=== PATIENT | female | born 1985 | race Two or more races ===

== ENCOUNTER 2023-10-30 15:45 | Emergency (ER) | payer OTHER ==
[~2023-10-30] VITALS: Ht 167.6 cm; Wt 75.7 kg
[~2023-10-30 15:45] MED LIST: DOLOGEN CAPLET1 TAB PO; MEDROL4 MG PO; PROVENTIL3 ML/2.5 M IH; TUSSIN15 MG/5 M1
[2023-10-30] MEDS ORDERED: KETOROLAC TROMETHAMINE 30 MG VIAL IV ONE (17:00)
[2023-10-30] MEDS ORDERED: cloNIDine HCL 0.2 MG TABLET PO ONE (17:00)
[2023-10-30 17:17] LABS: HEMATOCRIT 39.4 % (36.0-45.00); MEAN CELL VOLUME 86.4 fL (80.00-100.00); MEAN CORPUSCULAR HEMOGLOBIN 28.4 pg (27.00-32.0); MEAN CORPUSCULAR HGB CONC 32.9 g/dl (32.0-36.0); PLATELET COUNT 337 K/uL (150-450); RED BLOOD COUNT 4.56 M/uL (4.00-6.00); RED CELL DISTRIBUTION WIDTH 15.3 % (11.5-14.5)
[2023-10-30 17:41] LABS: ALBUMIN 3.9 gm/dL (3.4-5.0); BILIRUBIN TOTAL 0.31 mg/dL (0.3-1.2); CALCIUM 9.6 mg/dL (8.5-10.1); CREATININE SERUM 0.74 mg/dL (0.55-1.02); GFR 87.83; GLOBULINA 3.8 G/DL (2.4-3.5); POTASSIUM 5.09 mEq/L (3.5-5.1); TOTAL PROTEIN 7.7 gm/dL (6.4-8.2)
== END 2023-10-30 19:04 | disposition home or self-care (01) ==
LOC: ER 15:45
PROVIDERS: Emergency Medicine
DX: M26.622 Arthralgia of left temporomandibular joint (principal); I10 Essential (primary) hypertension; Z91.013 Allergy to seafood; Z87.09 Personal history of other diseases of the respiratory system

== ENCOUNTER 2024-11-21 18:01 | Inpatient (IN) | payer OTHER ==
[~2024-11-21] VITALS: Ht 162.6 cm; Wt 72.6 kg
[2024-11-21] MEDS ORDERED: METHYLPREDNISOLONE SOD SUCC 125 MG VIAL IV ONE (19:00)
[2024-11-21] MEDS ORDERED: IPRATROPIUM/ALBUTEROL SULFATE 3 ML AMPUL.NEB IH SCH ×2 (19:00→22:09)
--- NOTE | 2024-11-21 19:04 | NUR ---
PTE ALERTA Y ORIENTADA X 3 ESFERAS QUIEN REFIERE ASMA DESDE ESTA TARDE QUE NO MEJORA CON TX MEDICO,SE OBSERVA CON FATIGA Y NO HABLA EN ORACIONES COMPLETAS.
[2024-11-21] MEDS ORDERED: IPRATROPIUM/ALBUTEROL SULFATE 3 ML AMPUL.NEB IH ONE (19:05)
[2024-11-21] MEDS ORDERED: MAGNESIUM SULFATE IN WATER 4 GM/100 ML PIGGYBACK IV ONE (19:15)
[2024-11-21] MEDS ORDERED: MAGNESIUM SULFATE IN WATER 2 GM/50 ML PIGGYBAG IV ONE (19:15)
[2024-11-21] MEDS ORDERED: GUAIFENESIN 200 MG/10 ML BLIST.PACK PO ONE (19:15)
[2024-11-21] MEDS ORDERED: METHYLPREDNISOLONE SOD SUCC 125 MG VIAL ONE (19:19)
[2024-11-21] MEDS ORDERED: GUAIFENESIN/DEXTROMETHORPHAN 100MG/10ML BLIST.PACK PO ONE (19:19)
[2024-11-21] MEDS ORDERED: MAGNESIUM SULFATE 50% 1,000 MG/2 ML VIAL ONE (19:19)
--- NOTE | 2024-11-21 19:24 | NUR ---
SE EDUCA A PTE SOBRE TX MEDICO, SE JOCELINE MUESTRAS DE LABORATORIO UTILIZANDO MEDIDAS ASEPTICAS. SE COLOCA H/L NAINA DE EDEMA. SE ADMINISTRAN MEDICAMENTOS PABLO ORDEN MEDICA. SE NOTIFICA LAURA DE TERAPIAS PENDIENTES A PERSONAL DE TERAPIA RESPIRATORIA.
[2024-11-21 19:44] LABS: HEMATOCRIT 45.8 % (36.0-45.00); HEMOGLOBIN 14.7 g/dL (12.0-15.00); MEAN CELL VOLUME 85.3 fL (80.00-100.00); MEAN CORPUSCULAR HEMOGLOBIN 27.3 pg (27.00-32.0); MEAN CORPUSCULAR HGB CONC 32.1 g/dl (32.0-36.0); PLATELET COUNT 363 K/uL (150-450); RED BLOOD COUNT 5.37 M/uL (4.00-6.00); RED CELL DISTRIBUTION WIDTH 15.6 % (11.5-14.5)
[2024-11-21 20:10] LABS: CALCIUM 9.5 mg/dL (8.5-10.1); CREATININE SERUM 0.67 mg/dL (0.55-1.02); GFR 97.99; POTASSIUM 4.47 mEq/L (3.5-5.1)
[2024-11-21] MEDS ORDERED: PIPERACILLIN/TAZOBACTAM SODIUM 3.375 GM VIAL IV ONE ×2 (21:00→21:07)
[2024-11-21 21:44] LABS: ABG PH 7.405 (7.35-7.45); ABG PO2 61.8 mmHg (80-100); BASE EXCESS -2.1 mmol/l; SaO2 91.3 %; Tco2 23.1 mmol/l
[2024-11-21 22:04] LABS: allen test SATISFACTORY; o2 21 %; puncture site RADIAL RIGHT
[2024-11-21] MEDS ORDERED: AZITHROMYCIN 500 MG in DEXTROSE 5 % IN WATER 250 ML IV SCH (22:10)
[2024-11-21] MEDS ORDERED: CEFTRIAXONE SODIUM 2,000 MG in 0.9 % SODIUM CHLORIDE 100 ML IV SCH (22:10)
[2024-11-21] MEDS ORDERED: GUAIFEN/DEXTROMETHORPHAN/PE 10 ML BLIST.PACK PO SCH (22:10)
[2024-11-21] MEDS ORDERED: MONTELUKAST SODIUM 10 MG TABLET PO SCH (22:13)
[2024-11-21] MEDS ORDERED: ACETAMINOPHEN 500 MG GEL..CAP PO PRN (22:15)
[2024-11-21] MEDS ORDERED: 0.9 % SODIUM CHLORIDE 1,000 ML IV SCH (22:15)
[2024-11-21] MEDS ORDERED: AZITHROMYCIN 500 MG VIAL IV ONE (22:42)
[2024-11-21] MEDS ORDERED: MONTELUKAST SODIUM 10 MG TABLET PO ONE (22:42)
[2024-11-21] MEDS ORDERED: CEFTRIAXONE SODIUM 2,000 MG VIAL ONE (22:42)
[2024-11-21] MEDS ORDERED: GUAIFEN/DEXTROMETHORPHAN/PE 10 ML BLIST.PACK PO ONE (22:42)
[2024-11-21 23:36] LABS: INR 1.01; PARTIAL THROMBOPLASTIN TIME 26.5 SECONDS (22.0-34.0)
[2024-11-22] VITALS: BP 134/87; O2SAT 95
[2024-11-22] MEDS ORDERED: METHYLPREDNISOLONE SOD SUCC 40 MG VIAL IV SCH (01:00)
[2024-11-22 04:02] LABS: URINE APPEARANCE Clear; URINE BILIRRUBIN Negative (NEGATIVE); URINE BLOOD Negative; URINE COLOR Yellow; URINE KETONE Negative (NEGATIVE); URINE LEUKOCYTE Negative; URINE NITRATE Negative; URINE PROTEIN Negative (NEGATIVE); URINE UROBILINOGEN 0.2 E.U./dl
[2024-11-22 04:05] LABS: URINE BACTERIA 102.7 uL (0.0-1933); URINE EPITHELIAL CELLS 2.5 uL (0.0-38.8)
[2024-11-22 04:06] LABS: URINE GLUCOSE 250 MG/DL (NEGATIVE); URINE RBC 0.5 uL (0.0-20.8); URINE WBC 1.7 uL (0.0-23.2)
[2024-11-22] MEDS ORDERED: FAMOTIDINE/PF 20 MG in 0.9 % SODIUM CHLORIDE 8 ML IV PUSH SCH (05:00)
[2024-11-22 06:49] VITALS: BP 102/66
[2024-11-22 08:48] VITALS: BP 119/74
[2024-11-22] MEDS ORDERED: ENOXAPARIN SODIUM 40 MG/0.4 ML SYRINGE SUBCUTANEO SCH (09:00)
[2024-11-22 17:10] VITALS: BP 112/78; O2SAT 99
[2024-11-23 00:20] VITALS: BP 101/63
[2024-11-23 07:02] LABS: ALBUMIN 3.2 gm/dL (3.4-5.0); BILIRUBIN TOTAL 0.31 mg/dL (0.3-1.2); CALCIUM 9.1 mg/dL (8.5-10.1); CREATININE SERUM 0.64 mg/dL (0.55-1.02); GFR 103.31; GLOBULINA 3.3 G/DL (2.4-3.5); PHOSPHOROUS 4.2 mg/dL (2.5-4.9); POTASSIUM 4.83 mEq/L (3.5-5.1); TOTAL PROTEIN 6.5 gm/dL (6.4-8.2)
[2024-11-23 07:48] LABS: HEMATOCRIT 36.3 % (36.0-45.00); HEMOGLOBIN 11.8 g/dL (12.0-15.00); MEAN CELL VOLUME 84.2 fL (80.00-100.00); MEAN CORPUSCULAR HEMOGLOBIN 27.3 pg (27.00-32.0); MEAN CORPUSCULAR HGB CONC 32.5 g/dl (32.0-36.0); PLATELET COUNT 308 K/uL (150-450); RED BLOOD COUNT 4.31 M/uL (4.00-6.00); RED CELL DISTRIBUTION WIDTH 15.7 % (11.5-14.5)
[2024-11-23 08:48] VITALS: BP 136/85; O2SAT 98
[2024-11-23] MEDS ORDERED: CARVEDILOL 3.125 MG TABLET PO SCH (17:00)
[2024-11-23 17:12] VITALS: BP 133/83; O2SAT 98
[2024-11-23] MEDS ORDERED: CARVEDILOL 12.5 MG TABLET PO SCH (19:03)
[2024-11-23] MEDS ORDERED: METHYLPREDNISOLONE SOD SUCC 40 MG VIAL IV SCH (21:00)
[2024-11-23] MEDS ORDERED: CARVEDILOL 6.25 MG TABLET PO SCH (21:00)
[2024-11-24] MEDS ORDERED: LEVALBUTEROL HCL 0.63 MG/3 ML SOLUTION IH SCH
[2024-11-24] MEDS ORDERED: IPRATROPIUM BROMIDE 0.5 MG/2.5 ML AMPUL.NEB IH SCH (01:00)
[2024-11-24 01:09] VITALS: BP 125/85
[2024-11-24 09:44] VITALS: BP 150/88; O2SAT 97
[2024-11-24 18:14] VITALS: BP 133/82
[2024-11-24 21:28] LABS: ABG PH 7.424 (7.35-7.45); ABG pCO2 35.9 mmHg (35-45); BICARBONATE 22.9 mmol/l (23-25)
[2024-11-24 21:29] LABS: BASE EXCESS -0.9 mmol/l; allen test SATISFACTORY; o2 21 %; puncture site RADIAL RIGHT
[2024-11-24 21:30] LABS: ABG PO2 130.4 mmHg (80-100)
[2024-11-25 02:40] VITALS: BP 141/91; O2SAT 100
[2024-11-25 07:59] LABS: HEMATOCRIT 36.3 % (36.0-45.00); HEMOGLOBIN 11.7 g/dL (12.0-15.00); MEAN CELL VOLUME 85.1 fL (80.00-100.00); MEAN CORPUSCULAR HEMOGLOBIN 27.5 pg (27.00-32.0); MEAN CORPUSCULAR HGB CONC 32.4 g/dl (32.0-36.0); PLATELET COUNT 298 K/uL (150-450); RED BLOOD COUNT 4.27 M/uL (4.00-6.00); RED CELL DISTRIBUTION WIDTH 15.3 % (11.5-14.5)
[2024-11-25 08:54] LABS: ALBUMIN 2.9 gm/dL (3.4-5.0); BILIRUBIN TOTAL 0.34 mg/dL (0.3-1.2); CALCIUM 8.7 mg/dL (8.5-10.1); CREATININE SERUM 0.64 mg/dL (0.55-1.02); GFR 103.31; POTASSIUM 4.47 mEq/L (3.5-5.1); TOTAL PROTEIN 5.9 gm/dL (6.4-8.2)
[2024-11-25] MEDS ORDERED: METHYLPREDNISOLONE SOD SUCC 40 MG VIAL IV SCH (09:00)
[2024-11-25 09:02] VITALS: BP 124/84; O2SAT 98
[2024-11-25 18:01] VITALS: BP 157/103
[2024-11-26 02:00] VITALS: BP 133/86; O2SAT 96
[2024-11-26] MEDS ORDERED: AZITHROMYCIN 500 MG VIAL IV SCH (09:00)
[2024-11-26] MEDS ORDERED: METHYLPREDNISOLONE SOD SUCC 40 MG VIAL IV SCH (09:00)
[2024-11-26 09:02] VITALS: BP 146/93; O2SAT 96
[2024-11-26] MEDS ORDERED: XOPENEX CO1.25 MG/0. IH (10:49)
[2024-11-26] MEDS ORDERED: MEDROLPACK PO (10:50)
== END 2024-11-26 12:14 | disposition home or self-care (01) | DRG 202 ==
LOC: ER 18:04 → MEDJ 22:38
PROVIDERS: Emergency Medicine; General Practice; Internal Medicine; ADMIT Internal Medicine; ATTEND Internal Medicine
PROC: BW24ZZZ Computerized Tomography (CT Scan) of Chest and Abdomen (ICD-10-PCS; principal; 2024-11-21)
PROC: B24BZZZ Ultrasonography of Heart with Aorta (ICD-10-PCS; 2024-11-24)
DX: J45.41 Moderate persistent asthma with (acute) exacerbation (principal); J18.9 Pneumonia, unspecified organism; R09.02 Hypoxemia; I10 Essential (primary) hypertension

== ENCOUNTER 2025-01-21 19:33 | Inpatient (IN) | payer OTHER ==
[~2025-01-21] VITALS: Ht 165.1 cm; Wt 76.2 kg
[~2025-01-21 19:33] MED LIST changes: +MEDROLPACK PO; +XOPENEX CO1.25 MG/0. IH
[2025-01-21] MEDS ORDERED: CARVEDILOL ER40 MG PO (20:08)
[2025-01-21] MEDS ORDERED: ZESTRIL40 M1 PO (20:08)
[2025-01-21] MEDS ORDERED: AMLODIPINE BESYL5 MG PO (20:09)
--- NOTE | 2025-01-21 20:20 | NUR ---
SENRECIBE PTE ALERTA, ORIENTADA X3. PTE REFIERE FIEBRE, MALESTAR GENERAL Y DOLOR CORPORAL. AL MOMENTO DE TRIAGE TEMP. 101.1 SE ADMINISTRAN 1000 MG DE TYLENOL. PULSO EN 140. SE REALIZA EKG Y SE PRESENTA A .
[2025-01-21] MEDS ORDERED: FAMOtidine 10 MG/ML (4ML VIAL) IV ONE (20:30)
[2025-01-21] MEDS ORDERED: ACETAMINOPHEN 325 MG TABLET PO ONE (20:30)
[2025-01-21] MEDS ORDERED: 0.9 % SODIUM CHLORIDE 1,000 ML IV ONE (20:45)
[2025-01-21 21:26] LABS: BASO % 0.6 % (0.1-1.2); EOS # 0.47 (0.04-0.54); EOS % 2.2 % (0.7-7.0); HEMATOCRIT 38.5 % (34.1-44.9); HEMOGLOBIN 12.7 g/dL (11.2-15.7); LYMPH # 0.87 (1.18-3.74); MEAN CORPUSCULAR HEMOGLOBIN 28.2 pg (25.6-32.2); MONO # 1.27 (0.24-0.82); MONO % 5.9 % (4.7-12.5); NEUT % 86.9 % (34.0-71.1); PLATELET COUNT 319 K/uL (163-369); RED BLOOD COUNT 4.51 M/uL (3.93-5.22); RED CELL DISTRIBUTION WIDTH 13.8 % (11.6-14.4)
[2025-01-21 21:37] LABS: INFLUENZA A AG NEGATIVE (NEGATIVE)
[2025-01-21 21:39] LABS: ALBUMIN 3.6 gm/dL (3.4-5.0); BILIRUBIN TOTAL 0.7 mg/dL (0.3-1.2); CALCIUM 8.6 mg/dL (8.5-10.1); CREATININE SERUM 0.85 mg/dL (0.55-1.02); GFR 74.07; POTASSIUM 3.87 mEq/L (3.5-5.1); TOTAL PROTEIN 7.6 gm/dL (6.4-8.2)
--- NOTE | 2025-01-21 21:41 | NUR ---
SE EDUCA A PTE SOBRE TX MEDICO Y LA MISMA REFIERE ENTENDER Y ACEPTAR. SE EJECUTAN ORDENES MEDICAS A HOLMAN TOTALIDAD.
[2025-01-21 22:32] LABS: COVID-19 AG NEGATIVE (NEGATIVE)
[2025-01-21 22:38] LABS: BASO % 0.5 % (0.1-1.2); EOS # 0.43 (0.04-0.54); EOS % 2.1 % (0.7-7.0); HEMATOCRIT 36.3 % (34.1-44.9); LYMPH # 1.25 (1.18-3.74); LYMPH % 6.1 % (19.3-53.1); MONO # 1.43 (0.24-0.82); MONO % 6.9 % (4.7-12.5); NEUT # 17.31 (1.56-6.13); NEUT % 84.1 % (34.0-71.1); PLATELET COUNT 308 K/uL (163-369); RED BLOOD COUNT 4.29 M/uL (3.93-5.22); RED CELL DISTRIBUTION WIDTH 13.8 % (11.6-14.4)
[2025-01-21] MEDS ORDERED: PIPERACILLIN/TAZOBACTAM SODIUM 3.375 GM VIAL IV ONE (22:45)
[2025-01-22 00:08] LABS: PH,URINE 5.5 (5.0-8.0); URINE APPEARANCE Clear; URINE BILIRRUBIN Negative (NEGATIVE); URINE BLOOD Negative; URINE COLOR Yellow; URINE GLUCOSE Negative (NEGATIVE); URINE KETONE 15 (NEGATIVE); URINE LEUKOCYTE Negative; URINE NITRATE Negative; URINE PROTEIN Negative (NEGATIVE); URINE UROBILINOGEN 0.2 E.U./dl
[2025-01-22 00:12] LABS: URINE BACTERIA 406.3 uL (0.0-1933); URINE EPITHELIAL CELLS 14.5 uL (0.0-38.8); URINE WBC 2.6 uL (0.0-23.2)
[2025-01-22 00:20] LABS: URINE RBC 1.4 uL (0.0-20.8)
[2025-01-22] MEDS ORDERED: ACETAMINOPHEN 325 MG TABLET PO SCH (01:00)
[2025-01-22] MEDS ORDERED: ALBUTEROL SULFATE 3 ML/2.5 MG AMPUL.NEB IH SCH ×2 (02:30→09:00)
[2025-01-22 06:48] LABS: BASO % 0.6 % (0.1-1.2); EOS # 0.87 (0.04-0.54); EOS % 4.4 % (0.7-7.0); HEMATOCRIT 37.3 % (34.1-44.9); HEMOGLOBIN 12.3 g/dL (11.2-15.7); LYMPH # 1.16 (1.18-3.74); LYMPH % 5.8 % (19.3-53.1); MEAN CORPUSCULAR HEMOGLOBIN 28.4 pg (25.6-32.2); MONO # 1.46 (0.24-0.82); MONO % 7.3 % (4.7-12.5); NEUT # 16.24 (1.56-6.13); NEUT % 81.5 % (34.0-71.1); PLATELET COUNT 304 K/uL (163-369); RED BLOOD COUNT 4.33 M/uL (3.93-5.22); RED CELL DISTRIBUTION WIDTH 13.8 % (11.6-14.4)
[2025-01-22] MEDS ORDERED: CEFTRIAXONE SODIUM 1,000 MG VIAL IV STA (07:41)
[2025-01-22] MEDS ORDERED: ALBUTEROL SULFATE 3 ML/2.5 MG AMPUL.NEB IH ONE (16:47)
[2025-01-22] MEDS ORDERED: FAMOTIDINE/PF 20 MG in 0.9 % SODIUM CHLORIDE 8 ML IV PUSH SCH (18:02)
[2025-01-22] MEDS ORDERED: IPRATROPIUM/ALBUTEROL SULFATE 3 ML AMPUL.NEB IH SCH (18:08)
[2025-01-22] MEDS ORDERED: GUAIFEN/DEXTROMETHORPHAN/PE 10 ML BLIST.PACK PO SCH (18:09)
[2025-01-22] MEDS ORDERED: METHYLPREDNISOLONE SOD SUCC 40 MG VIAL IV SCH (18:10)
[2025-01-22] MEDS ORDERED: AMLODIPINE BESYLATE 5 MG TABLET PO SCH (18:10)
[2025-01-22] MEDS ORDERED: MONTELUKAST SODIUM 10 MG TABLET PO SCH (18:12)
[2025-01-22] MEDS ORDERED: NICOTINE 21MG/24HR PATCH.TD24 TD ONE (18:15)
[2025-01-22] MEDS ORDERED: ACETAMINOPHEN 500 MG GEL..CAP PO PRN (18:15)
[2025-01-22] MEDS ORDERED: SODIUM CHLORIDE 0.45 % 1,000 ML IV SCH (18:15)
[2025-01-22] MEDS ORDERED: KETOROLAC TROMETHAMINE 15 MG VIAL IU PRN (18:15)
[2025-01-22] MEDS ORDERED: 0.9 % SODIUM CHLORIDE 1,000 ML IV ONE (18:15)
[2025-01-22] MEDS ORDERED: 0.9 % SODIUM CHLORIDE 1,000 ML IV SCH (18:15)
[2025-01-22] MEDS ORDERED: METHYLPREDNISOLONE SOD SUCC 40 MG VIAL ONE (19:53)
[2025-01-22] MEDS ORDERED: GUAIFEN/DEXTROMETHORPHAN/PE 10 ML BLIST.PACK PO ONE (19:53)
[2025-01-22] MEDS ORDERED: FAMOTIDINE/PF 20 MG/2 ML VIAL ONE (19:54)
[2025-01-22] MEDS ORDERED: IPRATROPIUM/ALBUTEROL SULFATE 3 ML AMPUL.NEB IH ONE (20:31)
[2025-01-22 20:55] LABS: URINE APPEARANCE Clear; URINE BILIRRUBIN Negative (NEGATIVE); URINE BLOOD Negative; URINE COLOR Yellow; URINE GLUCOSE Negative (NEGATIVE); URINE KETONE Negative (NEGATIVE); URINE LEUKOCYTE Negative; URINE NITRATE Negative; URINE PROTEIN Negative (NEGATIVE)
[2025-01-22 20:59] LABS: URINE BACTERIA 102.7 uL (0.0-1933); URINE EPITHELIAL CELLS 3.6 uL (0.0-38.8); URINE WBC 1.8 uL (0.0-23.2)
[2025-01-22 21:04] LABS: INR 1.08; PARTIAL THROMBOPLASTIN TIME 28.2 SECONDS (22.0-34.0); PROTHROMBIN TIME 11.7 SECONDS (9.0-11.5)
[2025-01-22 21:07] LABS: URINE RBC 0.5 uL (0.0-20.8)
[2025-01-22 21:13] LABS: COVID-19 AG NEGATIVE (NEGATIVE)
[2025-01-22 22:20] LABS: ABG PH 7.443 (7.35-7.45); ABG PO2 77.2 mmHg (80-100); BASE EXCESS -1.1 mmol/l; BICARBONATE 22.1 mmol/l (23-25); SaO2 95.8 %; Tco2 23.1 mmol/l; allen test SATISFACTORY; mode ROOM AIR; o2 21 %; puncture site RADIAL LEFT
[2025-01-23] MEDS ORDERED: PIPERACILLIN/TAZOBACTAM SODIUM 3.375 GM in DEXTROSE 5 % IN WATER 100 ML IV SCH
[2025-01-23 05:21] VITALS: BP 138/84; O2SAT 98
[2025-01-23] MEDS ORDERED: LOSARTAN POTASSIUM 100 MG TABLET PO SCH (09:00)
[2025-01-23] MEDS ORDERED: LISINOPRIL 20 MG TABLET PO SCH (09:00)
[2025-01-23] MEDS ORDERED: ENOXAPARIN SODIUM 40 MG/0.4 ML SYRINGE SUBCUTANEO SCH (09:00)
[2025-01-23 09:02] VITALS: BP 117/78; O2SAT 95
[2025-01-23 17:29] VITALS: BP 122/75
[2025-01-23] MEDS ORDERED: METHYLPREDNISOLONE SOD SUCC 40 MG VIAL IV SCH (21:00)
[2025-01-24 02:48] VITALS: BP 124/75; O2SAT 95
[2025-01-24] MEDS ORDERED: 0.9 % SODIUM CHLORIDE 10 ML VIAL IJ ONE (07:57)
[2025-01-24 08:00] VITALS: BP 144/87
[2025-01-24] MEDS ORDERED: SODIUM CHLORIDE FOR INHALATION 1 VIAL.NEB IH SCH (09:00)
[2025-01-24 10:48] LABS: BASO % 0.1 % (0.1-1.2); HEMATOCRIT 37.9 % (34.1-44.9); LYMPH # 0.65 (1.18-3.74); LYMPH % 3.8 % (19.3-53.1); MEAN CORPUSCULAR HEMOGLOBIN 27.2 pg (25.6-32.2); MONO # 0.37 (0.24-0.82); MONO % 2.2 % (4.7-12.5); NEUT # 15.84 (1.56-6.13); NEUT % 93.4 % (34.0-71.1); PLATELET COUNT 377 K/uL (163-369); RED BLOOD COUNT 4.41 M/uL (3.93-5.22); RED CELL DISTRIBUTION WIDTH 13.7 % (11.6-14.4)
[2025-01-24] MEDS ORDERED: LACTOBACILLUS ACIDOPHILUS 1 CAP CAP PO SCH (17:00)
[2025-01-24 18:28] VITALS: BP 122/76
[2025-01-25 02:54] VITALS: BP 125/79
[2025-01-25 08:24] VITALS: BP 124/78
[2025-01-25 18:24] VITALS: BP 135/87; O2SAT 98
[2025-01-26] VITALS: BP 139/85; O2SAT 95
[2025-01-26 06:39] LABS: BASO % 0.1 % (0.1-1.2); HEMATOCRIT 32.3 % (34.1-44.9); HEMOGLOBIN 10.6 g/dL (11.2-15.7); LYMPH # 0.69 (1.18-3.74); MEAN CORPUSCULAR HEMOGLOBIN 28.3 pg (25.6-32.2); MONO % 4.1 % (4.7-12.5); NEUT # 8.55 (1.56-6.13); PLATELET COUNT 341 K/uL (163-369); RED BLOOD COUNT 3.75 M/uL (3.93-5.22); RED CELL DISTRIBUTION WIDTH 13.8 % (11.6-14.4)
[2025-01-26 07:17] LABS: ALBUMIN 2.8 gm/dL (3.4-5.0); BILIRUBIN TOTAL 0.17 mg/dL (0.3-1.2); CALCIUM 8.3 mg/dL (8.5-10.1); CREATININE SERUM 0.62 mg/dL (0.55-1.02); GFR 106.61; GLOBULINA 3.1 G/DL (2.4-3.5); MAGNESIUM 1.8 mg/dL (1.8-2.4); PHOSPHOROUS 3.7 mg/dL (2.5-4.9); POTASSIUM 4.63 mEq/L (3.5-5.1); TOTAL PROTEIN 5.9 gm/dL (6.4-8.2)
[2025-01-26 07:22] LABS: C-REACTIVE PROTEIN 0.73 MG/DL (0.00-0.29)
[2025-01-26 08:01] VITALS: BP 146/87
[2025-01-26 17:37] VITALS: BP 142/81; O2SAT 98
[2025-01-26] MEDS ORDERED: FAMOtidine 20 MG TABLET PO SCH (21:00)
[2025-01-27 02:49] VITALS: BP 121/68; O2SAT 97
[2025-01-27 05:07] LABS: quan ag 0.01 IU/mL (.); quan ag 0.02 IU/mL (.); quant nil 0.01 IU/mL (.)
[2025-01-27 07:52] VITALS: BP 134/79
[2025-01-27 17:57] VITALS: BP 137/85; O2SAT 99
[2025-01-27] MEDS ORDERED: METHYLPREDNISOLONE SOD SUCC 40 MG VIAL IV SCH (21:00)
[2025-01-28 01:33] VITALS: BP 129/81; O2SAT 97
[2025-01-28 08:51] VITALS: BP 140/83
== END 2025-01-28 12:21 | disposition home or self-care (01) | DRG 194 ==
LOC: ER 20:17 → MEDJ 01-22 21:23
PROVIDERS: General Practice; Internal Medicine Infectious Disease; ADMIT Student in an Organized Health Care Education/Training Program; ATTEND Student in an Organized Health Care Education/Training Program
PROC: BW24ZZZ Computerized Tomography (CT Scan) of Chest and Abdomen (ICD-10-PCS; principal; 2025-01-21)
DX: J18.9 Pneumonia, unspecified organism (principal); J45.31 Mild persistent asthma with (acute) exacerbation; I10 Essential (primary) hypertension